=== PATIENT | male | born 1955 | race Caucasian/White ===

== ENCOUNTER 2020-11-29 11:49 | Outpatient (CLI) | payer MEDICARE, SELFPAY ==
--- NOTE | 2020-11-29 12:57 | ECG_ITS ---
Measurements Intervals [place] Rate: 55 P: 50 MA: 204 QRS: 16 QRSD: 107 T: -5 QT: 417 QTc: 402 Interpretive Statements SINUS BRADYCARDIA BORDERLINE R WAVE PROGRESSION, ANTERIOR LEADS BORDERLINE T WAVE ABNORMALITY- INFERIOR LEADS BASELINE ARTIFACT- I, II, III, AVR, AVL, AVF BORDERLINE ECG Electronically Signed On 11-29-2020 13:22:24 CDT by Yunior Cramer D.O.
[2020-11-29 13:19] LABS: Basophils Percent Auto 0.5 % (0.2-1.2); Eosinophils Absolute Auto 0.5 K/mm3 (0-0.3); Eosinophils Percent Auto 6.3 % (0-4.4); Hematocrit 45.2 % (42.0-52.0); Immature Granulocyte Absolute 0.03 K/mm3 (0.00-0.031); Immature Granulocyte Percent A 0.4 % (0-0.5); Lymphocytes Absolute Auto 1.85 K/mm3 (0.9-3.2); Lymphocytes Percent Auto 24.2 % (18.3-44.2); Mean Corpuscular HGB Conc 33.2 g/dl (32-36); Mean Corpuscular Hemoglobin 31.1 pg (26-34); Mean Corpuscular Volume 93.8 fl (80-100); Mean Platelet Volume 9.6 fl (7.4-10.4); Monocytes Absolute Auto 0.7 K/mm3 (0.1-0.6); Monocytes Percent Auto 9.3 % (2.6-8.5); Neutrophils Absolute Auto 4.5 K/mm3 (1.3-6.7); Neutrophils Percent Auto 59.3 % (45.5-73.1); Platelet Count Result 203 k/mm3 (150-375); Red Blood Count 4.82 M/mm3 (4.6-6.20); Red Cell Distribution Width 11.8 % (11.5-14.5); White Blood Count 7.7 K/mm3 (4.5-10.0)
[2020-11-29 13:33] LABS: Alanine Aminotransferase 23 U/L (4-50); Albumin Level 4.6 g/dL (3.5-5.1); Alkaline Phosphatase 62 U/L (38-126); Anion Gap 8 mmol/L (8-16); Aspartate Amino Transferase 25 U/L (17-59); Bilirubin,Total 0.5 mg/dL (0.2-1.3); Blood Urea Nitrogen 12 mg/dL (9-20); Calcium 9.4 mg/dL (8.4-10.2); Carbon Dioxide 32 mmol/L (22-30); Chloride 99 mmol/L (98-107); Estimated Glomerular Filt Rate > 60; Glucose 110 mg/dL (65-110); Potassium 4.2 mmol/L (3.4-5.0); Sodium 139 mmol/L (137-145)
[2020-11-29 13:36] LABS: Prothrombin Time 12.7 Seconds (11.1-14.7)
[2020-11-29 13:37] LABS: Partial Thromboplastin Time 31.3 SECONDS (22.3-36.8)
== END 2020-11-29 11:50 | disposition home or self-care (01) ==
LOC: ANHSURGERY 11:56
PROVIDERS: PCP Internal Medicine; Visit Provider Urology
DX: C61 Malignant neoplasm of prostate (principal); I10 Essential (primary) hypertension; R00.1 Bradycardia, unspecified; Z51.81 Encounter for therapeutic drug level monitoring; Z79.899 Other long term (current) drug therapy
CPT/HCPCS: 36415; 80053; 85025; 85610; 85730; 87086; 93005

== ENCOUNTER 2020-12-15 14:22 | Observation (INO) | payer MEDICARE, SELFPAY ==
[2020-11-29 12:22] VITALS: BP 135/72; PULSE 63; RESP 16; TEMP 36.8; O2SAT 97; BMI 25.3
--- NOTE | 2020-12-13 13:21 | WPDANESEPPF ---
Anes - Initial Pre Proc Eval Procedure: Operation Date: 12/14/20 07:30 Proposed Procedures p Robotic Assisted Nerve Sparing Prostatectomy, Possible Bilateral Lymph Node Dissection - Axel Sutherland MD <Alejandro Bolton MD - Last Filed: 12/13/20 13:21> Date/Time: 12/13/20 13:21 <Alejandro Bolton MD - Last Filed: 12/13/20 13:21> Surgeon: Axel Sutherland MD <Alejandro Bolton MD - Last Filed: 12/13/20 13:21> Pre Op Diagnosis: prostate cancer <Alejandro Bolton MD - Last Filed: 12/13/20 13:21> Patient Data Age: 64 Gender: M Height: 1.7 m Weight: 73.5 kg <Alejandro Bolton MD - Last Filed: 12/13/20 13:21> Last Vital Signs Temp 98.3 F 11/29/20 12:22 Pulse 63 11/29/20 12:22 Resp 16 11/29/20 12:22 BP 135/72 11/29/20 12:22 Pulse Ox 97 11/29/20 12:22 <Alejandro Bolton MD - Last Filed: 12/13/20 13:21> Allergies Allergy/AdvReac Type Severity Reaction Status Date / Time No Known Allergies Allergy Verified 12/14/20 06:54 <Alejandro Bolton MD - Last Filed: 12/13/20 13:21> Home Medications Medication Instructions Recorded Confirmed Type aspirin [Aspir-81] 81 mg PO DAILY 11/29/20 12/14/20 History atorvastatin 20 mg PO QAM 11/29/20 12/14/20 History calcium carbonate-vitamin D3 1 tablet PO DAILY 11/29/20 12/14/20 History [Calcium + D] cyanocobalamin (vitamin B-12) 500 mcg PO DAILY 11/29/20 12/14/20 History diphenhydramine HCl [Benadryl] 25 mg PO Q6H PRN 11/29/20 12/14/20 History empagliflozin [Jardiance] 10 mg PO QAM 11/29/20 12/14/20 History famotidine 20 mg PO BID 11/29/20 12/14/20 History fexofenadine 180 mg PO DAILY 11/29/20 12/14/20 History flaxseed oil 1,000 mg PO DAILY 11/29/20 12/14/20 History fluticasone propionate 1 spray INTRANASAL BID PRN 11/29/20 12/14/20 History metformin 1,000 mg PO BID 11/29/20 12/14/20 History mirabegron [Myrbetriq] 25 mg PO QAM 11/29/20 12/14/20 History naphazoline-pheniramine [Allergy 1 drp EACH EYE QID PRN 11/29/20 12/14/20 History Eye (naphazoline-phen)] phenylephrine-acetaminophen 2 tablet PO Q4-6H PRN 11/29/20 12/14/20 History [Sudafed PE Sinus Headache] semaglutide [Ozempic] 0.5 mg SUBCUT WEEKLY 11/29/20 12/14/20 History tamsulosin 0.4 mg PO QAM 11/29/20 12/14/20 History telmisartan 40 mg PO QAM 11/29/20 12/14/20 History <Alejandro Bolton MD - Last Filed: 12/13/20 13:21> Patient hx anesthesia problems: none <Yordan Polanco MD - Last Filed: 12/14/20 07:00> Family hx anesthesia problems: none <Yordan Polanco MD - Last Filed: 12/14/20 07:00> Results Review: All pre-operative results and documents have been reviewed as part of the pre-operative evaluation. <Alejandro Bolton MD - Last Filed: 12/13/20 13:21> [facility] Past Medical History Medical History: Medical History Diabetes GERD (gastroesophageal reflux disease) Hyperlipidemia Hypertension JC (obstructive sleep apnea) Prostate cancer <Alejandro Bolton MD - Last Filed: 12/13/20 13:21> Family History Family History: Family History Other Family history of arthritis Family history of malignant neoplasm <Alejandro Bolton MD - Last Filed: 12/13/20 13:21> Social History Social History: Social History Smoking status: Never smoker Alcohol intake: never Substance use: never Living arrangements: with family Additional living arrangements comments: Spiritual care concerns: No <Alejandro Bolton MD - Last Filed: 12/13/20 13:21> Anes - Eval Final PreProcedure Day of Procedure 12/13/20 13:21 <Alejandro Bolton MD - Last Filed: 12/13/20 13:21> Patient weight: normal <Yordan Polanco MD - Last Filed: 12/14/20 07:00> Heart: regular rate and rhythm <Yordan Polanco MD - Last
[2020-12-14] VITALS (16 sets, daily range): BP systolic 114–154; BP diastolic 59–87; PULSE 61–89; RESP 12–20; TEMP 36.3–36.8; O2SAT 94–100
[2020-12-14] MEDS: LACTATED RINGERS 1,000 ML 30 ML IV CONT ×2 (06:55→11:35)
[2020-12-14 07:18] LABS: Glucose Point of Care 125 mg/dl (65-105)
--- NOTE | 2020-12-14 07:25 | WPDHPUPDATE1 ---
History and Physical Update Update Date/Time: 12/14/20 07:25 History and Physical has been reviewed, including an updated exam of the patient. There are NO changes in the patient's condition. Risks, benefits, and alternatives have been discussed and questions answered. Patient agrees to proceed with procedure.
[2020-12-14] MEDS: ceFAZolin 2 GM/D5W 50 ML 2 GM/50 ML BAG IVPB (07:30)
[2020-12-14] MEDS: BUPIVACAINE HCL 0.5% PF 30 ML VIAL INFILTRATE (08:34)
--- NOTE | 2020-12-14 11:17 | W.PM.PROC2 ---
Procedure Note - Detailed Date of Procedure 12/14/20 Pre-op Diagnosis prostate cancer Post-op Diagnosis same Procedure Performed Robotic assisted nerve-sparing prostatectomy with right pelvic lymph node dissection and lysis of the adhesions Surgeon Axel Sutherland MD Anesthesia general Description of Procedure Patient is taken to the operative suite correctly identified. Once anesthesia was obtained was placed in low-lying dorsal lithotomy position and prepped and draped usual sterile fashion. [place] was placed with 20 cc in the balloon. Supraumbilical incision was then made. This carried down to the rectus fascia. Veress needle was inserted in the abdomen was insufflated 15 mmHg pressure. Camera trocar port was then placed under direct vision. All appropriate working ports were placed. Patient was placed in steep Trendelenburg position and the robot was docked. Patient did have quite a bit of adhesions of the sigmoid colon which were taken down. We then did a posterior approach. Seminal vesicles were dissected out in their entirety. The vas were transected. Plane between the prostate and rectum was developed. Bladder was then taken down in standard fashion. Space of Retzius developed bilaterally. Puboprostatic were taken down. Dorsal venous complex was isolated using 0 Vicryl suture and secured to the pubic bone. Anterior bladder neck was then open. Patient has a moderate-sized median lobe. We were able to excise this and leave a fairly small bladder opening. Posterior bladder neck was transected. The space entering the posterior area was then incised and seminal vesicles were exposed. These were then brought out anteriorly. Pedicles were taken and clipped. Bilateral nerve-sparing was performed standard fashion. Dorsal venous complex was transected. The urethral stump was then transected. Specimen was placed in an Endo-Catch bag. Right pelvic lymph node dissection was performed with the boundaries being the external iliac vein obturator nerve, Michael's ligament, and bifurcation of the vessels. Clips were placed proximally and distally. Surgicel was placed over the nerves as well as the op right obturator fossa. Specimens were all in the Endo-Catch bag. We then placed a Keshawn suture using 0 Vicryl. Bladder neck was then reanastomosed to the urethral stump with good approximation of mucosa using V lock suture in a running fashion. [place] was placed inflated with 10 cc in the balloon. We filled the bladder with 250 cc of sterile saline. There was no evidence of extravasation at this time. Working port 3. Was removed and a RONI drain was placed. All lap count needle count sponge counts were correct. The robot was undocked. Specimen was brought out through the midline incision. Midline incision was closed using 0 Vicryl running fashion. Subcuticular stitches were placed for the skin. We thus thighs the skin with 1% lidocaine. Patient tolerated procedure well without any complications was taken recovery stable condition. I should also state that we did excise some tissue from the anterior and posterior bladder neck area and sent those as separate specimens. Estimated Blood Loss 100 Drains Yes Packing Yes
[2020-12-14 11:44] LABS: Glucose Point of Care 173 mg/dl (65-105)
[2020-12-14] MEDS: fentaNYL CITRATE INJ (*CRX) 100 MCG/2 ML VIAL 25 MCG IV PUSH ×8 (11:44→13:00)
--- NOTE | 2020-12-14 13:40 | ADMGEN ---
This patient, Santiago Mack, was admitted to 2 Medical Room 256-. Patient/family oriented to hospital policies and general routines including ID bracelet, bed and alarms, visiting hours, pain management, procedures, bathroom and other care routines, personal items, smoking policy, room service/diet, and visiting hours. Information on how to activate the Rapid Response Team has been discussed. Patient/Family are encouraged to report perceived risks to care and to ask questions if they do not understand what they are told or what they should do.
[2020-12-14] MEDS: LACTATED RINGERS 1,000 ML 125 ML IV CONT ×2 (14:23→22:27)
[2020-12-14] MEDS: KETOROLAC 15 MG/ML VIAL (*BKC) IV PUSH (15:59)
[2020-12-14 16:23] LABS: Glucose Point of Care 123 mg/dl (65-105)
[2020-12-14] MEDS: metFORMIN HCL 500 MG TABLET 1000 MG PO (16:35)
[2020-12-14] MEDS: DOCUSATE SODIUM 100 MG CAPSULE PO (20:37)
[2020-12-14] MEDS: FAMOTIDINE 20 MG TABLET PO (20:37)
[2020-12-14] MEDS: HYDROcodone/acetaminophen (*CRX) 5-325 MG TABLET 2 TAB PO (21:17)
[2020-12-14 21:22] LABS: Glucose Point of Care 146 mg/dl (65-105)
[2020-12-15] VITALS: BP 112/57; PULSE 62; RESP 18; TEMP 36.7; O2SAT 94
[2020-12-15 05:28] VITALS: BP 110/55; PULSE 64; RESP 16; TEMP 36.6; O2SAT 95
[2020-12-15 05:40] LABS: Hematocrit 35.3 % (42.0-52.0); Hemoglobin 11.8 g/dL (14.0-18.0)
[2020-12-15 05:48] LABS: Anion Gap 3 mmol/L (8-16); Blood Urea Nitrogen 14 mg/dL (9-20); Calcium 7.8 mg/dL (8.4-10.2); Carbon Dioxide 28 mmol/L (22-30); Chloride 101 mmol/L (98-107); Estimated CRCL calculation 96 ml/min; Estimated Glomerular Filt Rate > 60; Glucose 111 mg/dL (65-110); Potassium 3.9 mmol/L (3.4-5.0); Sodium 132 mmol/L (137-145)
[2020-12-15] MEDS: LACTATED RINGERS 1,000 ML 125 ML IV CONT ×3 (06:28→23:23)
[2020-12-15] MEDS: HYDROcodone/acetaminophen (*CRX) 5-325 MG TABLET 1 TAB PO ×2 (06:53→15:06)
[2020-12-15 07:37] LABS: Glucose Point of Care 120 mg/dl (65-105)
[2020-12-15] MEDS: levoFLOXacin 500 MG TABLET PO (08:05)
[2020-12-15] MEDS: FAMOTIDINE 20 MG TABLET PO ×2 (08:05→21:11)
[2020-12-15] MEDS: ATORVASTATIN 20 MG TABLET PO (08:05)
[2020-12-15] MEDS: TELMISARTAN 40 MG TABLET PO (08:05)
[2020-12-15] MEDS: metFORMIN HCL 500 MG TABLET 1000 MG PO ×2 (08:05→17:27)
[2020-12-15] MEDS: LORATADINE 10 MG TABLET PO (08:06)
[2020-12-15] MEDS: DOCUSATE SODIUM 100 MG CAPSULE PO ×2 (08:06→21:11)
[2020-12-15 09:55] VITALS: BP 100/70; PULSE 68; TEMP 35.7; O2SAT 96
[2020-12-15] MEDS: HYDROcodone/acetaminophen (*CRX) 5-325 MG TABLET 2 TAB PO ×2 (10:41→21:10)
--- NOTE | 2020-12-15 13:07 | WPDUROPN2 ---
Progress Note: A&P Assessment and Plan (1) Prostate cancer: Code(s): C61 - Malignant neoplasm of prostate Status: Inactive Assessment and Plan: Patient tolerating pain well, and tolerating diet. His catheter is patent and draininge. RONI drain is draining bloody drainage. (2) Gross hematuria: Code(s): R31.0 - Gross hematuria Status: Acute Assessment and Plan: H&H is stable at this time, it is expected to be low post operatively. Will keep him overnight and repeat an H&H tomorrow morning. Irrigate landaverde q shift and PRN. Subjective Subjective Date/Time Seen: 12/15/20 13:07 POD #1 Robotic Assisted Nerve Sparing Prostatectomy with right pelvic lymph node dissection and lysis of the adhesions. Patient doing well today, sitting up in bed, tolerating pain and diet well. Catheter is bloody but draining well and RONI drain has moderate amounts of output at this time. Review of Systems Respiratory: Respiratory: Reports no additional respiratory complaints Gastrointestinal: Gastrointestinal: Denies abdominal pain, Denies nausea and Denies vomiting Genitourinary: Genitourinary: Reports hematuria, Denies flank pain and Reports other Exam Resp: Effort & Inspection: normal respiratory effort Cardio: Rate: regular rate GI: Inspection: incision (well approximated, no drainage, edema or redness present.) and other (RONI drain draining bloody drainage.) GI Palp: Yes Soft to palpation and No Tenderness to palpation present (GI) : General: Yes no CVA tenderness Meatus: Blood at meatus present Urinary Catheter: Urinary Catheter: patent and draining, urine red and urine with clots Extrem: General: no edema Objective Data Vital Signs Vital Signs: Vital Signs - 24 hr 12/14/20 13:15 12/14/20 13:30 12/14/20 13:55 Temperature 97.8 F Pulse Rate 77 73 77 Respiratory Rate 18 14 18 Blood Pressure 133/75 137/73 135/67 Pulse Oximetry 96 95 97 12/14/20 14:10 12/14/20 14:40 12/14/20 15:40 Temperature 98.3 F 97.4 F L 97.5 F L Pulse Rate 74 85 89 Respiratory Rate 18 18 16 Blood Pressure 129/79 114/68 154/80 H Pulse Oximetry 97 95 99 12/14/20 19:19 12/14/20 20:00 12/15/20 00:00 Temperature 98.3 F 98.0 F Pulse Rate 83 83 62 Respiratory Rate 16 16 18 Blood Pressure 117/59 L 112/57 L Pulse Oximetry 95 95 94 12/15/20 05:28 12/15/20 09:55 Temperature 97.9 F 96.2 F L Pulse Rate 64 68 Respiratory Rate 16 Blood Pressure 110/55 L 100/70 Pulse Oximetry 95 96 Intake/Output Intake/Output: Intake & Output 12/12/20 12/13/20 12/14/20 12/15/20 23:59 23:59 23:59 23:59 Intake Total 2260 1730 Output Total 550 970 Balance 1710 760 Meds/Results Medications: Active Medications Generic Name Dose Route Start Last Admin Trade Name Freq PRN Reason Stop Dose Admin Hydrocodone Bitart/Acetaminophen 1 tab 12/14/20 13:34 12/15/20 06:53 Hydrocodone/Acetaminophen (*Crx) 5-325 Mg Tablet PO 1 tab Q6H PRN Administration Pain Rated 1-3 Hydrocodone Bitart/Acetaminophen 2 tab 12/14/20 13:34 12/15/20 10:41 Hydrocodone/Acetaminophen (*Crx) 5-325 Mg Tablet PO 2 tab Q6H PRN Administration Pain Rated 4-6 Atorvastatin Calcium 20 mg 12/15/20 09:00 12/15/20 08:05 Atorvastatin 20 Mg Tablet PO 20 mg QAM CAMILO Administration Docusate Sodium 100 mg 12/14/20 21:00 12/15/20 08:06 Docusate Sodium 100 Mg Capsule PO 100 mg Q12HR CAMILO Administration Famotidine 20 mg 12/14/20 21:00 12/15/20 08:05 Famotidine 20 Mg Tablet PO 20 mg Q12HR CAMILO Administration Hyoscyamine 0.125 mg 12/14/20 13:34 Hyoscyamine Sulfate 0.125 Mg Tablet SUBLINGUAL Q4H PRN Bladder Spasm Lactated Ringer's 1,000 mls @ 125 mls/hr 12/14/20 13:34 12/15/20 06:28 Lr - Lactated Ringers Iv IV CONT 125 mls/hr .Q8H CAMILO Administration Ketorolac Tromethamine 15 mg 12/14/20 13:34 12/14/20 15:59 Ketorolac 15 Mg/Ml Vial (*Bkc) IV PUSH 12/15/20 13:33 15
[2020-12-15 13:50] VITALS: BP 108/62; PULSE 64; RESP 16; TEMP 36.8; O2SAT 96
--- NOTE | 2020-12-15 14:41 | WPDANESPN ---
Anes - Prog Note Post-Op Date/Time: 12/15/20 14:41 Cardiovascular status: normal Respiratory status: normal Airway patency: baseline Mental status: baseline Post-Op hydration status: normal Vital Signs: Last Vital Signs Temp 36.8 C 12/15/20 13:50 Pulse 64 12/15/20 13:50 Resp 16 12/15/20 13:50 BP 108/62 12/15/20 13:50 Pulse Ox 96 12/15/20 13:50 Pain Score (VAS): 0 I/O: Intake & Output 12/14/20 12/15/20 12/15/20 23:59 07:59 15:59 Intake Total 1360 1550 180 Output Total 60 970 Balance 1300 580 180 Laboratory Tests 12/15/20 05:25 12/15/20 05:25 12/14/20 12/14/20 12/15/20 16:13 20:34 05:25 Hgb 11.8 L D Hct 35.3 L Sodium Potassium Chloride Carbon Dioxide Anion Gap BUN Creatinine Estim Creat Clear Calc Estimated GFR Glucose POC Capillary Glucose 123 H 146 H Calcium 12/15/20 12/15/20 05:25 06:30 Hgb Hct Sodium 132 L Potassium 3.9 Chloride 101 Carbon Dioxide 28 Anion Gap 3 L BUN 14 Creatinine 0.60 L Estim Creat Clear Calc 96 Estimated GFR > 60 Glucose 111 H POC Capillary Glucose 120 H Calcium 7.8 L Post-procedural complaints: none Patient Feedback: Patient satisfied with anesthetic care.
--- NOTE | 2020-12-15 15:56 | PM.DS ---
DS: Admitting Diagnosis Discharge Date 12/16/2020 Admitting Diagnosis Prostate Cancer DS: Discharge Diagnosis Discharge Diagnosis (1) Prostate cancer: Code(s): C61 - Malignant neoplasm of prostate Status: Acute (2) Gross hematuria: Code(s): R31.0 - Gross hematuria Status: Acute DS: Summary Hospital Course Reason for hospitalization: Prostatectomy Hospital Course: The patient underwent a Robotic assisted Nerve Sparing Prostatectomy with Right Pelvic Lymph Node Dissection and Lysis of Adhesions on 12/14/[address] Harinder Sutherland. He tolerated the procedure well, was sent to recovery in stable condidtion and to the floor for further observation. He is tolerating his diet and pain with medications, however he had some gross hematuria on 12/15/2020 as well as moderate amounts of bloody RONI drainage. His H&H was low post operatively, but expected and stable. It was decided to keep him overnight one more night to monitor H&H, gross hematuria and RONI drainage output. He will resume a diet as tolerated, activity as tolerated and all home medications except ASA. He will in addition, start Bactrim, Hydrocodone,Levsin and Colace. He is doing very well today, urine has cleared up nicely, no blood visible, RONI drainage has decreased overall. H&H is stable today. He will f/u in our office next week after his cystogram to remove landaverde. He will go home with landaverde. Status at Discharge Functional status at discharge: independent ambulation Overall status at discharge: patient is progressing back to baseline Time Spent with Patient Time spent: Less than 30 minutes Exam Resp: Effort & Inspection: normal respiratory effort Cardio: Rate: regular rate GI: Inspection: incision (No drainage, edema or redness present, all are well approximated.) GI Palp: Yes Soft to palpation and No Tenderness to palpation present (GI) : General: Yes no CVA tenderness Urinary Catheter: Urinary Catheter: patent and draining and urine clear Extrem: General: no edema DS: Data Data Completed and Pending Pending studies at discharge: Pending at discharge 12/14/20 11:07 Surgical [PTH] Routine Labs on day of discharge: Labs from last 24 hours 12/15/20 12/15/20 12/15/20 06:30 05:25 05:25 Hgb 11.8 L D Hct 35.3 L Sodium 132 L Potassium 3.9 Chloride 101 Carbon Dioxide 28 Anion Gap 3 L BUN 14 Creatinine 0.60 L Estim Creat Clear Calc 96 Estimated GFR > 60 Glucose 111 H POC Capillary Glucose 120 H Calcium 7.8 L 12/14/20 12/14/20 20:34 16:13 Hgb Hct Sodium Potassium Chloride Carbon Dioxide Anion Gap BUN Creatinine Estim Creat Clear Calc Estimated GFR Glucose POC Capillary Glucose 146 H 123 H Calcium Discharge Plan Discharge Attending physician on discharge: Mela Murphy Discharging Clinician: Axel Sutherland Anticipated Discharge Date/Time: 12/16/20 12:00 Patient Disposition: Home, Self-Care Activity: july shower Diet: as tolerated Wound Care Instructions: incision open to air Discharge Instructions: Patient to keep landaverde catheter in place and follow up for scheduled Cystogram, then immediately to the office after the cystogram to remove landaverde if cystogram is normal. Call the office if you develop blood in your urine, a fever >102, vomiting or incisional pain, swelling bleeding or incisions that are open. Change your RONI drain site bandage daily and as needed if it becomes saturated. Wash all of your incisions gently with soap and water and pat dry, the glue will come off in about 2 weeks, do not try to remove it before. Patient Instructions: Antibiotic Form Stand Alone Forms: General Discharge Information Follow-up/Referrals: Axel Sutherland MD [Physician] - Discharge Medications: New hyoscyamine sulfate [Levsin] 0.125 mg tablet 0.125 mg PO QID Qty: 20 RF: 0 Continued
[2020-12-15 19:09] VITALS: BP 123/64; PULSE 66; RESP 16; TEMP 36.7; O2SAT 96
[2020-12-15 20:50] VITALS: BP 133/75; PULSE 76; RESP 18; TEMP 36.6; O2SAT 97
[2020-12-16 05:40] LABS: Hemoglobin 11.7 g/dL (14.0-18.0)
[2020-12-16] MEDS: HYOSCYAMINE SULFATE 0.125 MG TABLET SUBLINGUAL (07:25)
[2020-12-16] MEDS: HYDROcodone/acetaminophen (*CRX) 5-325 MG TABLET 1 TAB PO (07:26)
[2020-12-16] MEDS: LACTATED RINGERS 1,000 ML 125 ML IV CONT (07:27)
[2020-12-16] MEDS: metFORMIN HCL 500 MG TABLET 1000 MG PO (08:08)
[2020-12-16] MEDS: LORATADINE 10 MG TABLET PO (08:08)
[2020-12-16] MEDS: ATORVASTATIN 20 MG TABLET PO (08:08)
[2020-12-16] MEDS: DOCUSATE SODIUM 100 MG CAPSULE PO (08:08)
[2020-12-16] MEDS: levoFLOXacin 500 MG TABLET PO (08:09)
[2020-12-16] MEDS: TELMISARTAN 40 MG TABLET PO (08:09)
[2020-12-16] MEDS: FAMOTIDINE 20 MG TABLET PO (08:09)
[2020-12-16 08:13] VITALS: BP 144/66; PULSE 77; O2SAT 97
--- NOTE | 2020-12-16 08:51 | WPDUROPN2 ---
Progress Note: A&P Assessment and Plan (1) Prostate cancer: Code(s): C61 - Malignant neoplasm of prostate Status: Acute Assessment and Plan: Ok to discharge home today with leg bag, please send large bag for overnight home with him and instruct catheter care. Remove RONI drain and place a dry dressing over the site. H&H stable, patient doing very well. (2) Gross hematuria: Code(s): R31.0 - Gross hematuria Status: Acute Assessment and Plan: Resolved. Subjective Subjective Date/Time Seen: 12/16/20 08:51 POD #2 Robotic Assisted Nerve Sparing Prostatectomy with right pelvic lymph node dissection and lysis of the adhesions. Patient doing well today, sitting up in bed, tolerating pain and diet well. Catheter is clear and yellow, draining well and RONI drain has decreased amounts of output at this time. Review of Systems Cardiovascular: Cardiovascular: Denies chest pain Respiratory: Respiratory: Reports no additional respiratory complaints Gastrointestinal: Gastrointestinal: Denies abdominal pain, Denies nausea and Denies vomiting Genitourinary: Genitourinary: Denies hematuria, Denies flank pain and Reports other (bladder spasms) Exam Resp: Effort & Inspection: normal respiratory effort Cardio: Rate: regular rate GI: Inspection: incision (well approximated, no drainage, edema or redness present) GI Palp: Yes Soft to palpation and No Tenderness to palpation present (GI) : General: Yes no CVA tenderness Urinary Catheter: Urinary Catheter: patent and draining and urine clear Extrem: General: no edema Objective Data Vital Signs Vital Signs: Vital Signs - 24 hr 12/15/20 09:55 12/15/20 13:50 12/15/20 19:09 Temperature 96.2 F L 98.3 F 98.1 F Pulse Rate 68 64 66 Respiratory Rate 16 16 Blood Pressure 100/70 108/62 123/64 Pulse Oximetry 96 96 96 12/15/20 20:50 12/16/20 08:13 Temperature 97.8 F Pulse Rate 76 77 Respiratory Rate 18 Blood Pressure 133/75 144/66 H Pulse Oximetry 97 97 Intake/Output Intake/Output: Intake & Output 12/13/20 12/14/20 12/15/20 12/16/20 23:59 23:59 23:59 23:59 Intake Total 2260 4210 1710 Output Total 550 2440 3960 Balance 1710 1770 -2250 Meds/Results Medications: Active Medications Generic Name Dose Route Start Last Admin Trade Name Freq PRN Reason Stop Dose Admin Hydrocodone Bitart/Acetaminophen 1 tab 12/14/20 13:34 12/16/20 07:26 Hydrocodone/Acetaminophen (*Crx) 5-325 Mg Tablet PO 1 tab Q6H PRN Administration Pain Rated 1-3 Hydrocodone Bitart/Acetaminophen 2 tab 12/14/20 13:34 12/15/20 21:10 Hydrocodone/Acetaminophen (*Crx) 5-325 Mg Tablet PO 2 tab Q6H PRN Administration Pain Rated 4-6 Atorvastatin Calcium 20 mg 12/15/20 09:00 12/16/20 08:08 Atorvastatin 20 Mg Tablet PO 20 mg QAM CAMILO Administration Docusate Sodium 100 mg 12/14/20 21:00 12/16/20 08:08 Docusate Sodium 100 Mg Capsule PO 100 mg Q12HR CAMILO Administration Famotidine 20 mg 12/14/20 21:00 12/16/20 08:09 Famotidine 20 Mg Tablet PO 20 mg Q12HR CAMILO Administration Hyoscyamine 0.125 mg 12/14/20 13:34 12/16/20 07:25 Hyoscyamine Sulfate 0.125 Mg Tablet SUBLINGUAL 0.125 mg Q4H PRN Administration Bladder Spasm Lactated Ringer's 1,000 mls @ 125 mls/hr 12/14/20 13:34 12/16/20 07:27 Lr - Lactated Ringers Iv IV CONT 125 mls/hr .Q8H CAMILO Administration Levofloxacin 500 mg 12/15/20 09:00 12/16/20 08:09 Levofloxacin 500 Mg Tablet PO 500 mg DAILY CAMILO Administration Loratadine 10 mg 12/15/20 09:00 12/16/20 08:08 Loratadine 10 Mg Tablet PO 01/14/21 08:59 10 mg DAILY CAMILO Administration Metformin HCl 1,000 mg 12/14/20 17:00 12/16/20 08:08 Metformin Hcl 500 Mg Tablet PO 1,000 mg BIDWM CAMILO Administration Miscellaneous Information 0 each 12/14/20 00:01 Empagliflozin [Jardiance] 10 Mg = Nonformulary XX 01/13/21 00:00 CLARIFY CAMILO Morphine Sulfat
[2020-12-16 08:58] VITALS: RESP 16; TEMP 36.8
== END 2020-12-16 13:11 | disposition home or self-care (01) ==
LOC: ANHSURGERY 14:27 → ANH2MED 14:27
PROVIDERS: Nurse Practitioner Adult Health; Admitting Provider Urology; PCP Internal Medicine; Visit Provider Urology
PROC: 0VT04ZZ Resection of Prostate, Percutaneous Endoscopic Approach (ICD-10-PCS; CPT 55867; principal; 2020-12-14 07:30)
DX: C61 Malignant neoplasm of prostate (principal); R31.0 Gross hematuria; E11.9 Type 2 diabetes mellitus without complications; I10 Essential (primary) hypertension; E78.5 Hyperlipidemia, unspecified; Z79.84 Long term (current) use of oral hypoglycemic drugs
CPT/HCPCS: 55866; 38571; S2900; 36415; 80048; 82948; 85014; 85018; 86850; 86900; 86901; 88305; 88307; 88309; A9270; G0378; J0690; J1885; J2250; J2270; J2704; J2710; J3010; J7030; J7120; Q9968

== ENCOUNTER 2020-12-22 12:58 | Outpatient (CLI) | payer MEDICARE, SELFPAY ==
--- NOTE | ~2020-12-22 | XR_ITS ---
EXAMINATION: XR cystogram EXAM DATE: 12/22/2020 13:59 INDICATION: Prostatectomy for cancer. TECHNIQUE: Fluoroscopic guidance used during cystogram performed by Dr. Barney Hess, radiologist, [facility] [place] catheter in place on patient arrival. An Omnipaque 350/saline solution was used and allowe d to infuse through the [place] catheter under gravity. Fork Lift Truck Operator image, fluoroscopic images and postevacua tion image were obtained. Total fluoroscopic time of 0.1. The DAP for this procedure was 7.5 mGym2. A total of 22 images obtained for the exam. FINDINGS: Fork Lift Truck Operator image is unremarkable. Patient tolerate adequate distention of bladder. There is blad jason wall trabeculation. No diverticula or ureteral reflux. No contrast extravasation. IMPRESSION: Trabecular bladder wall. Otherwise unremarkable exam. Reviewed, dictated and finalized at location A.
== END 2020-12-22 12:59 | disposition home or self-care (01) ==
LOC: ANHIMG 13:02
PROVIDERS: PCP Internal Medicine; Visit Provider Urology
DX: C61 Malignant neoplasm of prostate (principal)
CPT/HCPCS: 51600; 74430; Q9967